=== PATIENT | female | born 1965 | race Caucasian/White ===

== ENCOUNTER 2020-10-10 04:57 | Emergency (ER) | payer BC ==
[~2020-10-10] VITALS: Ht 170.2 cm; Wt 78.2 kg
[~2020-10-10 04:57] MED LIST: AMLO5TAB PO; ESCI-8 PO; METO50TA7 PO; OMEP20CA15 PO; [UNRECOGNIZED DRUG - CODE] PO
[2020-10-10] MEDS ORDERED: aspirin 81mg tab.chew PO ONE (05:10)
[2020-10-10 06:11] LABS: BASOPHILS # (AUTO) 0.1 X10'3 (0-0.2); EOSINOPHILS # (AUTO) 0.1 X10'3 (0-0.9); EOSINOPHILS % (AUTO) 3.3 % (0-6); HEMATOCRIT 42.4 % (35.0-45.0); HEMOGLOBIN 14.4 g/dl (12.0-16.0); LYMPHOCYTES % (AUTO) 26.5 % (21-51); MEAN CORPUSCULAR HEMOGLOBIN 31.1 PG (27.0-31.0); MEAN CORPUSCULAR HGB CONC 34.1 g/dL (33.0-36.5); MEAN CORPUSCULAR VOLUME 91.1 FL (78-98); MONOCYTES # (AUTO) 0.5 X10'3 (0-0.9); NEUTROPHILS % (AUTO) 54.2 % (42-75); PLATELET COUNT 216 X10'3 (140-440); RED BLOOD COUNT 4.65 X10'6 (4.20-5.60); RED CELL DISTRIBUTION WIDTH 13.2 % (11.5-14.5); WHITE BLOOD COUNT 3.7 X10'3 (4.5-11.0)
[2020-10-10 06:21] LABS: PARTIAL THROMBOPLASTIN TIME 28 SECONDS (22-32)
[2020-10-10 06:24] LABS: ALANINE AMINOTRANSFERASE 42 U/L (12-78); ALBUMIN 3.9 G/DL (3.4-5.0); ALBUMIN/GLOBULIN RATIO 1.1 (1.1-1.5); ALKALINE PHOSPHATASE 73 IU/L (46-116); ANION GAP 7 (8-16); ASPARTATE AMINO TRANSFERASE 24 U/L (10-37); BILIRUBIN,TOTAL 0.6 MG/DL (0.1-1.0); BLOOD UREA NITROGEN 16 MG/DL (7-18); BUN/CREATININE RATIO 20.3 (6.6-38.0); CALCIUM 9.3 MG/DL (8.5-10.1); CHLORIDE 107 MMOL/L (99-107); CREATININE 0.79 MG/DL (0.40-0.90); GLUCOSE 107 MG/DL (70-104); POTASSIUM 3.9 MMOL/L (3.5-5.1); SODIUM 143 MMOL/L (135-145); TOTAL CARBON DIOXIDE 28.8 MMOL/L (24-32); TOTAL PROTEIN 7.6 G/DL (6.4-8.2); eGFR 75 ML/MIN
[2020-10-10 06:31] LABS: MAGNESIUM 2.2 MG/DL (1.5-2.4)
[2020-10-10] MEDS ORDERED: normal saline 1000ML IV soln IVB ONE (07:45)
[2020-10-10] MEDS ORDERED: morphine 4 MG/ML inj SYRINge IV PRN (07:45)
[2020-10-10] MEDS ORDERED: ondansetron/PF 4mg/2ml inj IV ONE (07:45)
--- NOTE | 2020-10-10 08:09 | NUR ---
Pt transported to [place] via wheelchair with tech.
[2020-10-10 08:20] LABS: CHOL/HDL RATIO 3.9 (0.00-4.99); CHOLESTEROL 201 MG/DL (0-200); HDL CHOLESTEROL 52 MG/DL (35-60); LDL CHOLESTEROL 121 MG/DL (50-100); LIPASE 81 U/L (73-393); TRIGLYCERIDES 170 MG/DL (20-135)
[2020-10-10] MEDS ORDERED: METR500T PO (08:56)
[2020-10-10] MEDS ORDERED: HYDR-3964 PO (08:56)
[2020-10-10] MEDS ORDERED: CIPR-259 PO (08:56)
[2020-10-10] MEDS ORDERED: ONDA4TAB6 PO (08:56)
[2020-10-10] MEDS ORDERED: IBUP-1984 PO (09:57)
[2020-10-10] MEDS ORDERED: COLC0.6T72 PO (09:57)
[2020-10-10 10:26] VITALS: BP 144/87
== END 2020-10-10 10:30 | disposition home or self-care (01) ==
LOC: ER 04:58
DX: I31.9 Disease of pericardium, unspecified (principal); I10 Essential (primary) hypertension; E03.9 Hypothyroidism, unspecified; Z90.89 Acquired absence of other organs; Z88.0 Allergy status to penicillin; Z79.899 Other long term (current) drug therapy
CPT/HCPCS: 36415; 71045; 74176; 80053; 80061; 83690; 83735; 83880; 84484; 85025; 85610; 85730; 93005; 96361; 96374; 96375; 99285; J2270; J2405; J7030